=== PATIENT | female | born 1985 | race American Indian/Alaskan Native ===

== ENCOUNTER 2017-07-08 16:22 | Emergency (ER) | payer SELFPAY ==
[2017-07-08 16:35] VITALS: BP 123/81
[2017-07-08 17:07] LABS: Basophils % (Auto) 0.2 % (0.0-1.8); Eosinophils % (Auto) 0.3 % (0.0-4.3); Hematocrit 43.7 % (30.3-42.9); Hemoglobin 14.3 gm/dl (10.1-14.3); Lymphocytes # (Auto) 4.4 K/mm3 (1.2-5.4); Lymphocytes % (Auto) 31.5 % (13.4-35.0); Mean Corpuscular HGB Conc 33 % (30-34); Mean Corpuscular Hemoglobin 33 pg (28-32); Mean Corpuscular Volume 100 fl (79-97); Monocytes % (Auto) 7.2 % (0.0-7.3); Platelet Count 241 K/mm3 (140-440); Red Blood Count 4.37 M/mm3 (3.65-5.03); Red Cell Distribution Width 12.6 % (13.2-15.2)
[2017-07-08 17:21] LABS: Alanine Aminotransferase 14 units/L (7-56); Albumin 4.6 g/dL (3.9-5); BUN/Creatinine Ratio 25; Blood Urea Nitrogen 15 mg/dL (7-17); Calcium 9.1 mg/dL (8.4-10.2); Hemolysis Index 8
[2017-07-08 17:31] LABS: Bilirubin,Urine NEG (Negative); Blood,Urine NEG (Negative); Color,Urine Yellow (Yellow); Mucus,Urine 3+ /HPF; Nitrite,Urine NEG (Negative)
== END 2017-07-08 23:05 | disposition left against medical advice (07) ==
LOC: ED 16:22
DX: R10.9 Unspecified abdominal pain (principal); Z53.21 Procedure and treatment not carried out due to patient leaving prior to being seen by health care provider
CPT/HCPCS: 36415; 80053; 81001; 85025

== ENCOUNTER 2021-05-16 16:57 | Emergency (ER) | payer BC ==
[2021-05-16 17:31] LABS: Basophils # (Auto) 0.1 K/mm3 (0.0-0.1); Basophils % (Auto) 0.6 % (0.0-1.8); Eosinophils % (Auto) 0.4 % (0.0-4.3); Hematocrit 38.1 % (30.3-42.9); Lymphocytes # (Auto) 3.7 K/mm3 (1.2-5.4); Lymphocytes % (Auto) 39.1 % (13.4-35.0); Mean Corpuscular HGB Conc 34 % (30-34); Mean Corpuscular Volume 97 fl (79-97); Monocytes # (Auto) 0.8 K/mm3 (0.0-0.8); Monocytes % (Auto) 8.3 % (0.0-7.3); Platelet Count 223 K/mm3 (140-440); Red Blood Count 3.93 M/mm3 (3.65-5.03); Red Cell Distribution Width 12.5 % (13.2-15.2)
[2021-05-16 17:43] LABS: INR 0.95 (0.87-1.13)
[2021-05-16] MEDS ORDERED: SODIUM CHLORIDE 0.9% 1000 ML 1,000 ML IV ONE (17:57)
--- NOTE | 2021-05-16 18:16 | XRay Report ---
CHEST 1 VIEW 05/16/2021 5:08 PM INDICATION / CLINICAL INFORMATION: Medical Clearance Psych. COMPARISON: None available. FINDINGS: SUPPORT DEVICES: None. HEART / MEDIASTINUM: No significant abnormality. LUNGS / PLEURA: No significant pulmonary or pleural abnormality. No pneumothorax. ADDITIONAL FINDINGS: No significant additional findings. IMPRESSION: 1. No acute findings. Signer Name: Danny Covington DO Signed: 05/16/2021 6:12 PM Workstation Name: [id number]
[2021-05-16 18:47] LABS: Alanine Aminotransferase 12 units/L (7-56); BUN/Creatinine Ratio 18; Blood Urea Nitrogen 11 mg/dL (7-17); Calcium 9.4 mg/dL (8.4-10.2)
[2021-05-16 18:48] LABS: Albumin 4.7 g/dL (3.9-5)
--- NOTE | 2021-05-16 19:42 | Emergency Department Report ---
ED General Adult HPI - General Chief complaint: Overdose Stated complaint: OVERDOSE/SUICIDE ATTEMPT Time Seen by Provider: 05/16/21 17:03 Source: EMS Mode of arrival: Stretcher Limitations: Altered Mental Status - History of Present Illness Initial comments: Patient arrived to the emergency department obtunded. Patient took unknown number of Flexeril as well as drinking 12 ounces of wine. Patient also took Tinidazole 4mg of unknown amount. Due to the patient being obtunded patient was not able to add to the history -: unknown Consistency: constant Improves with: none Worsens with: none Associated Symptoms: denies other symptoms Treatments Prior to Arrival: none - Related Data Previous Rx's Medication Instructions Recorded Last Taken Type HYDROcodone/APAP 5-325 [[place] 1 each PO Q6HR PRN #14 tablet 11/24/13 Unknown Rx 5-325 mg TAB] Sulfamethoxazole/Trimethoprim 1 each PO BID #20 tablet 11/24/13 Unknown Rx [Bactrim Ds] Allergies Allergy/AdvReac Type Severity Reaction Status Date / Time No Known Allergies Allergy Verified 05/16/21 17:13 ED Review of Systems ROS: Stated complaint: OVERDOSE/SUICIDE ATTEMPT Other details as noted in HPI Comment: Unobtainable due to pts medical conditions ED Past Medical Hx - Past Medical History Additional medical history: endometriosis - Surgical History Additional Surgical History: endometriosis, knee surgery, tubaligation, ESSURE - Social History Smoking Status: Current Every Day Smoker Substance Use Type: Alcohol, Non Opiate Pain - Medications Home Medications: Home Medications Medication Instructions Recorded Confirmed Last Taken Type HYDROcodone/APAP 5-325 [[place] 1 each PO Q6HR PRN #14 tablet 11/24/13 Unknown Rx 5-325 mg TAB] Sulfamethoxazole/Trimethoprim 1 each PO BID #20 tablet 11/24/13 Unknown Rx [Bactrim Ds] ED Physical Exam - General General appearance: obtunded, other (Patient is somnolent but arousable) - Head Head exam: Present: atraumatic, normocephalic - Eye Eye exam: Absent: scleral icterus, conjunctival injection - ENT ENT exam: Present: mucous membranes dry - Neck Neck exam: Present: normal inspection - Respiratory Respiratory exam: Present: decreased breath sounds - Cardiovascular Cardiovascular Exam: Present: normal rhythm, tachycardia - GI/Abdominal GI/Abdominal exam: Present: soft, normal bowel sounds. Absent: distended - Extremities Exam Extremities exam: Present: normal inspection - Neurological Exam Neurological exam: Present: altered - Psychiatric Psychiatric exam: Present: other (Not Able to assess due to the patient's condition) - Skin Skin exam: Present: warm, dry, intact, normal color. Absent: rash ED Course Vital Signs 05/16/21 05/16/21 05/16/21 16:40 17:00 17:07 Temperature Pulse Rate 116 H Respiratory 16 Rate Blood Pressure 133/89 133/89 Blood Pressure 125/86 [Left] O2 Sat by Pulse 100 100 Oximetry 05/16/21 05/16/21 05/16/21 17:15 17:31 17:45 Temperature Pulse Rate 139 H 111 H 127 H Respiratory 13 18 21 Rate Blood Pressure 133/89 143/85 125/77 Blood Pressure [Left] O2 Sat by Pulse 100 100 100 Oximetry 05/16/21 05/16/21 05/16/21 18:43 19:11 19:15 Temperature 98.0 F Pulse Rate 108 H 131 H Respiratory 14 18 Rate Blood Pressure 134/88 Blood Pressure 147/91 [Left] O2 Sat by Pulse 100 100 Oximetry 05/16/21 05/16/21 05/16/21 19:31 20:01 20:45 Temperature Pulse Rate 132 H 124 H 91 H Respiratory 18 18 15 Rate Blood Pressure 147/91 130/81 128/77 Blood Pressure [Left] O2 Sat by Pulse 100 100 100 Oximetry 05/16/21 05/16/21 05/16/21 21:01 21:31 22:01 Temperature Pulse Rate 94 H 91 H 96 H Respiratory 15 13 15 Rate Blood Pressure 114/69 117/79 105/60 Blood Pressure [Left] O2 Sat by Pulse 100 100 100 Oximetry 05/16/21 05/16/21 05/16/21 22:31 23:01 23:02 Temperature Pulse Rate 94 H Respiratory 23 Rate Blood Pressure 101/66 106/60 Blood Pressure 106/60 [Left] O2 Sat by Pulse 100 100 100 Oximetry 05/17/21 05/17/21 05/17/21 00:01 00:31 01:51 Temperature Pulse Rate 95 H Respiratory 17 19 Rate Blood Pressure 112/74 112/74 Blood Pressure 101/68 [Left] O2 Sat by Pulse 100 100 100 Oximetry 05/17/21 05/17/21 05/17/21 02:01 02:26 03:17 Temperature Pulse Rate 92 H Respiratory 17 14 Rate Blood Pressure 116/74 Blood Pressure 117/77 [Left] O2 Sat by Pulse 99 100 99 Oximetry 05/17/21 05/17/21 05/17/21 03:31 04:14 04:31 Temperature Pulse Rate 89 Respiratory 15 17 14 Rate Blood Pressure 105/67 101/69 Blood Pressure 103/69 [Left] O2 Sat by Pulse 100 100 100 Oximetry 05/17/21 05/17/21 05/17/21 05:01 06:00 06:01 Temperature Pulse Rate 87 Respiratory 16 15 16 Rate Blood Pressure 110/73 115/76 Blood Pressure 108/74 [Left] O2 Sat by Pulse 100 100 100 Oximetry 05/17/21 05/17/21 05/17/21 07:01 08:01 09:01 Temperature Pulse Rate Respiratory 17 18 17 Rate Blood Pressure 121/78 121/78 121/78 Blood Pressure [Left] O2 Sat by Pulse 99 98 99 Oximetry 05/17/21 05/17/21 09:43 10:01 Temperature 98.4 F Pulse Rate 108 H Respiratory 16 14 Rate Blood Pressure Blood Pressure 121/78 [Left] O2 Sat by Pulse 100 98 Oximetry ED Medical Decision Making - Lab Data Result diagrams: 05/16/21 17:19 05/16/21 17:19 Lab Results 05/16/21 05/16/21 05/16/21 Range/Units 17:19 17:19 17:19 WBC 9.4 (4.5-11.0) K/mm3 RBC 3.93 (3.65-5.03) M/mm3 Hgb 13.0 (10.1-14.3) gm/dl Hct 38.1 (30.3-42.9) % MCV 97 (79-97) fl MCH 33 H (28-32) pg MCHC 34 (30-34) % RDW 12.5 L (13.2-15.2) % Plt Count 223 (140-440) K/mm3 Lymph % (Auto) 39.1 H (13.4-35.0) % [place] % (Auto) 8.3 H (0.0-7.3) % Eos % (Auto) 0.4 (0.0-4.3) % Baso % (Auto) 0.6 (0.0-1.8) % Lymph # (Auto) 3.7 (1.2-5.4) K/mm3 [place] # (Auto) 0.8 (0.0-0.8) K/mm3 Eos # (Auto) 0.0 (0.0-0.4) K/mm3 Baso # (Auto) 0.1 (0.0-0.1) K/mm3 Seg Neutrophils % 51.6 (40.0-70.0) % Seg Neutrophils # 4.9 (1.8-7.7) K/mm3 PT 13.7 (12.2-14.9) Sec. INR 0.95 (0.87-1.13) Sodium (137-145) mmol/L Potassium (3.6-5.0) mmol/L Chloride (98-107) mmol/L Carbon Dioxide (22-30) mmol/L Anion Gap mmol/L BUN (7-17) mg/dL Creatinine (0.6-1.2) mg/dL Estimated GFR ml/min BUN/Creatinine Ratio % Glucose (65-100) mg/dL Calcium (8.4-10.2) mg/dL Total Bilirubin (0.1-1.2) mg/dL AST (5-40) units/L ALT (7-56) units/L Alkaline Phosphatase (35-129) units/L Total Protein (6.3-8.2) g/dL Albumin (3.9-5) g/dL Albumin/Globulin Ratio % TSH (0.270-4.200) mlU/mL HCG, Qual (Negative) Salicylates < 0.3 L (2.8-20.0) mg/dL Acetaminophen (10.0-30.0) ug/mL Plasma/Serum Alcohol (0-0.07) % 05/16/21 05/16/21 05/16/21 Range/Units 17:19 17:19 17:19 WBC (4.5-11.0) K/mm3 RBC (3.65-5.03) M/mm3 Hgb (10.1-14.3) gm/dl Hct (30.3-42.9) % MCV (79-97) fl MCH (28-32) pg MCHC (30-34) % RDW (13.2-15.2) % Plt Count (140-440) K/mm3 Lymph % (Auto) (13.4-35.0) % [place] % (Auto) (0.0-7.3) % Eos % (Auto) (0.0-4.3) % Baso % (Auto) (0.0-1.8) % Lymph # (Auto) (1.2-5.4) K/mm3 [place] # (Auto) (0.0-0.8) K/mm3 Eos # (Auto) (0.0-0.4) K/mm3 Baso # (Auto) (0.0-0.1) K/mm3 Seg Neutrophils % (40.0-70.0) % Seg Neutrophils # (1.8-7.7) K/mm3 PT (12.2-14.9) Sec. INR (0.87-1.13) Sodium 144 (137-145) mmol/L Potassium 3.5 L (3.6-5.0) mmol/L Chloride 105.9 (98-107) mmol/L Carbon Dioxide 20 L (22-30) mmol/L Anion Gap 22 mmol/L BUN 11 (7-17) mg/dL Creatinine 0.6 (0.6-1.2) mg/dL Estimated GFR > 60 ml/min BUN/Creatinine Ratio 18 % Glucose 85 (65-100) mg/dL Calcium 9.4 (8.4-10.2) mg/dL Total Bilirubin 1.10 (0.1-1.2) mg/dL AST 18 (5-40) units/L ALT 12 (7-56) units/L Alkaline Phosphatase 62 (35-129) units/L Total Protein 7.5 (6.3-8.2) g/dL Albumin 4.7 (3.9-5) g/dL Albumin/Globulin Ratio 1.7 % TSH 1.490 (0.270-4.200) mlU/mL HCG, Qual (Negative) Salicylates (2.8-20.0) mg/dL Acetaminophen 5.0 L (10.0-30.0) ug/mL Plasma/Serum Alcohol (0-0.07) % 05/16/21 05/16/21 Range/Units 17:19 17:19 WBC (4.5-11.0) K/mm3 RBC (3.65-5.03) M/mm3 Hgb (10.1-14.3) gm/dl Hct (30.3-42.9) % MCV (79-97) fl MCH (28-32) pg MCHC (30-34) % RDW (13.2-15.2) % Plt Count (140-440) K/mm3 Lymph % (Auto) (13.4-35.0) % [place] % (Auto) (0.0-7.3) % Eos % (Auto) (0.0-4.3) % Baso % (Auto) (0.0-1.8) % Lymph # (Auto) (1.2-5.4) K/mm3 [place] # (Auto) (0.0-0.8) K/mm3 Eos # (Auto) (0.0-0.4) K/mm3 Baso # (Auto) (0.0-0.1) K/mm3 Seg Neutrophils % (40.0-70.0) % Seg Neutrophils # (1.8-7.7) K/mm3 PT (12.2-14.9) Sec. INR (0.87-1.13) Sodium (137-145) mmol/L Potassium (3.6-5.0) mmol/L Chloride (98-107) mmol/L Carbon Dioxide (22-30) mmol/L Anion Gap mmol/L BUN (7-17) mg/dL Creatinine (0.6-1.2) mg/dL Estimated GFR ml/min BUN/Creatinine Ratio % Glucose (65-100) mg/dL Calcium (8.4-10.2) mg/dL Total Bilirubin (0.1-1.2) mg/dL AST (5-40) units/L ALT (7-56) units/L Alkaline Phosphatase (35-129) units/L Total Protein (6.3-8.2) g/dL Albumin (3.9-5) g/dL Albumin/Globulin Ratio % TSH (0.270-4.200) mlU/mL HCG, Qual Negative (Negative) Salicylates (2.8-20.0) mg/dL Acetaminophen (10.0-30.0) ug/mL Plasma/Serum Alcohol 0.04 (0-0.07) % - EKG Data -: EKG Interpreted by [place] EKG shows normal: sinus rhythm Rate: tachycardia - Medical Decision Making 1013 applied Mental health assessment ordered Contacted poison control and told to observe the patient for [address] of head to be completed and resulted At this point the patient will be not be medically clear till 12:30 AM on 05/17/2021 Critical care attestation.: If time is entered above; I have spent that time in minutes in the direct care of this critically ill patient, excluding procedure time. ED Disposition Clinical Impression: Overdose, Suicide attempt Disposition: 07 LEFT AWOL/ELOPED Is pt being admited?: No Does the pt Need Aspirin: No Condition: Stable Referrals: PRIMARY CARE, [Primary Care Provider] - 3-5 Days
--- NOTE | 2021-05-16 21:03 | Cat Scan Report ---
CT HEAD WITHOUT CONTRAST INDICATION / CLINICAL INFORMATION: Medical Clearance Psych. TECHNIQUE: All CT scans at this location are performed using CT dose reduction for ALARA by means of automated exposure control. COMPARISON: None available. FINDINGS: HEMORRHAGE: None. EXTRA-AXIAL SPACES: Normal in size and morphology for the patient's age. VENTRICULAR SYSTEM: Normal in size and morphology for the patient's age. CEREBRAL PARENCHYMA: No significant abnormality. No acute territorial infarct. MIDLINE SHIFT / HERNIATION: None. CEREBELLUM / BRAINSTEM: No significant abnormality. ORBITS: Normal as visualized. SOFT TISSUES: No significant abnormality. SKULL: No significant abnormality. PARANASAL SINUSES / MASTOID AIR CELLS: Normal as visualized. ADDITIONAL FINDINGS: None. IMPRESSION: 1. No acute intracranial abnormality. Signer Name: Rakan Carcamo MD Signed: 05/16/2021 8:59 PM Workstation Name: [id number]
[2021-05-17 07:29] LABS: Amphetamine Screen,Urine PRESUMPTIVE NEGATIVE; Benzodiazepines Screen,Urine PRESUMPTIVE NEGATIVE; Cannabinoid Screen,Urine PRESUMPTIVE POSITIVE; Cocaine Screen,Urine PRESUMPTIVE NEGATIVE; Methadone Screen,Urine PRESUMPTIVE NEGATIVE; Opiate Screen,Urine PRESUMPTIVE NEGATIVE
[2021-05-17 07:31] LABS: Bacteria,Urine 1+ /HPF (Negative); Bilirubin,Urine NEG (Negative); Blood,Urine NEG (Negative); Color,Urine Amber (Yellow); Mucus,Urine 3+ /HPF; Urobilinogen,Urine < 2.0 mg/dL (<2.0)
[2021-05-17 09:13] VITALS: BP 121/78
--- NOTE | 2021-05-17 11:14 | Electrocardiograph Report ---
[facility] Test Date: 2021-05-16 Test Time: 17:10:48 Pat Name: LORENA MARMOLEJO Department: Room: Gender: F Child Support Agent: Edward : 1985 Requested By: CRISTIAN GARCIA Order Number: [id number] Reading MD: Ellis Martinez Measurements Intervals [place] Rate: 131 P: 77 TX: 134 QRS: 43 QRSD: 88 T: -11 QT: 303 QTc: 449 Interpretive Statements Sinus tachycardia No previous ECG available for comparison Electronically Signed On 05-17-2021 11:13:35 EST by Ellis Martinez
--- NOTE | 2021-05-17 11:52 | Consultation ---
History of Present Illness - Reason for Consult Consult date: 05/17/21 Reason for consult: OD - History of Present Psychiatric Illness ED Note: Patient arrived to the emergency department obtunded. Patient took unknown number of Flexeril as well as drinking 12 ounces of wine. Patient also took Tinidazole 4mg of unknown amount. Due to the patient being obtunded patient was not able to add to the history. The patient is a 35 year old female with history of Depression ADHD, and Anxiety disorder. In my interview with the patient, she is calm, alert and oriented and withdrawn. The patient states she came to the ED "because they won't let me ." When asked about her stressor, she states "I don't want to speak to you or anyone about it." The patient made a suicidal attempt which is serious by degree of lethality and intentional. PAST PSYCHIATRIC HISTORY Diagnoses:Depression ADHD, Anxiety Suicide attempts or Self-harm behavior: Yes Prior psychiatric hospitalizations: yes Substance Abuse history: Cocaine, Marijuana Previous psychiatric medications tried: Citalopram Outpatient treatment: unknown PAST MEDICAL HISTORY: none reported Family Psychiatric History: None reported or documented SOCIAL HISTORY Marital Status: Living Arrangements: Lives with Employment Status: employed Access to guns/weapons: Denies Education: 12th grade History of Abuse: none reported Legal History: yes REVIEW OF SYSTEMS Constitutional: Negative for weight loss ENT: Negative for stridor Respiratory: Negative for cough or hemoptysis All other systems reviewed and are negative MENTAL STATUS EXAMINATION General Appearance and Behavior: Age appropriate, poor hygiene, wearing a ppropriate clothes, poor eye contact, cooperative irritable with questioning. Cooperation: Participating Hostile and Guarded Psychomotor Behavior: , unremarkable and within normal limits Mood: depressed Affect and affective range: congruent with stated mood Thought Process: goal directed Thought Content: Not suicidal Intellectual Functioning: Average Suicidal Ideation: Denies SI Homicidal Ideation: Denies HI Hallucination: Denies Impulse Control: Impaired Insight and Judgment: Limited insight and poor judgment Memory: Normal Attention: Normal Orientation: Alert, oriented Assessment and Plan - Psychiatric problem (1) major depressive disorder Current Visit: Yes Status: Acute RECOMMENDATIONS continue 1013 Start Citalopram 20 mg po daily Start Trazodone 50mg po QHS MEDICATIONS: Risks, benefits and alternatives of medications discussed with the patient, questions answered and consent obtained from patient. PSYCHOTHERAPY: Supportive psychotherapy provided MEDICAL: Per primary team DELIRIUM PRECAUTIONS: Please re-orient patient frequently, keep lights on during the day, and minimize benzodiazepines and opiates as these medications could worsen patient's confusion. GRANULATOR: Per medical team DISPOSITION: Recommends acute inpatient psychiatric hospitalization at this time LEGAL STATUS: continue 1013 FOLLOW-UP: Will follow. Thank you for the consult. Please contact with any questions and/or concerns. Medications and Allergies Medications and Allergies Allergies Allergy/AdvReac Type Severity Reaction Status Date / Time No Known Allergies Allergy Verified 05/16/21 17:13 Home Medications Medication Instructions Recorded Confirmed Last Taken Type HYDROcodone/APAP 5-325 [[place] 1 each PO Q6HR PRN #14 tablet 11/24/13 Unknown Rx 5-325 mg TAB] Sulfamethoxazole/Trimethoprim 1 each PO BID #20 tablet 11/24/13 Unknown Rx [Bactrim Ds] Mental Status Exam - Vital signs Last Vital Signs Temp 98.4 F 05/17/21 09:43 Pulse 108 H 05/17/21 09:43 Resp 14 05/17/21 10:01 BP 121/78 05/17/21 09:43 Pulse Ox 98 05/17/21 10:01 Results Result Diagrams: 05/16/21 17:19 05/16/21 17:19 Abnormal lab results 05/16/21 05/16/21 05/16/21 Range/Units 17:19 17:19 17:19 MCH 33 H (28-32) pg RDW 12.5 L (13.2-15.2) % Lymph % (Auto) 39.1 H (13.4-35.0) % [place] % (Auto) 8.3 H (0.0-7.3) % Potassium (3.6-5.0) mmol/L Carbon Dioxide (22-30) mmol/L Salicylates < 0.3 L (2.8-20.0) mg/dL Acetaminophen 5.0 L (10.0-30.0) ug/mL 05/16/21 Range/Units 17:19 MCH (28-32) pg RDW (13.2-15.2) % Lymph % (Auto) (13.4-35.0) % [place] % (Auto) (0.0-7.3) % Potassium 3.5 L (3.6-5.0) mmol/L Carbon Dioxide 20 L (22-30) mmol/L Salicylates (2.8-20.0) mg/dL Acetaminophen (10.0-30.0) ug/mL All other labs normal.
[2021-05-17] MEDS ORDERED: CITALOPRAM 20 MG TAB PO SCH (13:00)
[2021-05-17] MEDS ORDERED: traZODone 50 MG TAB PO SCH (22:00)
== END 2021-05-18 05:46 | disposition left against medical advice (07) ==
LOC: ED 16:57
DX: T48.1X2A Poisoning by skeletal muscle relaxants [neuromuscular blocking agents], intentional self-harm, initial encounter (principal); Y92.89 Other specified places as the place of occurrence of the external cause; F17.200 Nicotine dependence, unspecified, uncomplicated; F10.20 Alcohol dependence, uncomplicated; Z20.822 Contact with and (suspected) exposure to COVID-19
CPT/HCPCS: 70450; 71045; 80053; 80307; 81001; 84443; 84703; 85025; 85610; 93005; 96360; 96361; 99285; J7030; U0003; 80320; Q0162; G0480